=== PATIENT | male | born 1945 | race Caucasian/White ===

== ENCOUNTER → 2017-01-09 | Outpatient (CLI) | payer MEDICARE, OTHER ==
[2017-01-09 11:01] LABS: CREATININE 0.9 mg/dL (0.6-1.3)
[2017-01-09 11:02] LABS: ESTIMATED GFR (MDRD EQUATION) > 60
== END | disposition disaster alternative care site (69) ==
LOC: GLAB 09:45 → GRAD 09:46
PROVIDERS: Urology
DX: C61 Malignant neoplasm of prostate (principal); N40.0 Benign prostatic hyperplasia without lower urinary tract symptoms; S22.41XD Multiple fractures of ribs, right side, subsequent encounter for fracture with routine healing; R91.1 Solitary pulmonary nodule; X58.XXXD Exposure to other specified factors, subsequent encounter
CPT/HCPCS: A9503